=== PATIENT | male | born 1950 | race Hispanic/Latino ===

== ENCOUNTER 2018-01-18 17:44 | Emergency (ER) | payer MEDICARE, BC ==
[2018-01-18 17:54] VITALS: TEMP 98.1
[2018-01-18] MEDS ORDERED: Piperacill/Tazo 4.5gm in Dex 4.5 GM/100 ML BAG IVPB STA (19:25)
[2018-01-18] MEDS ORDERED: Sodium Chloride 0.9% 1,000 ML IV STA (19:25)
--- NOTE | 2018-01-18 19:25 | C.PDOC ---
History Of Present Illness 67 year old male presents to ED for evaluation of cat bites to distal left forearm. Pt states his own cat, that is up to date with immunizations, bit him in the left forearm yesterday. Notes he developed pain, swelling and redness to that region today. He reports washing the area with peroxide yesterday. Otherwise, denies fever, chills, or any other associated symptoms at this time. Time Seen by Provider: 01/18/18 17:55 Chief Complaint (Nursing): Bite History Per: Patient History/Exam Limitations: no limitations Past Medical History Reviewed: Historical Data, Nursing Documentation, Vital Signs Vital Signs: Last Vital Signs Temp 98.1 F 01/18/18 17:50 Pulse 96 H 01/18/18 17:50 Resp 18 01/18/18 17:50 BP Pulse Ox 95 01/18/18 19:33 - Medical History PMH: Depression, HTN, Hypercholesterolemia Surgical History: Tonsillectomy Family History: States: Unknown Family Hx - Social History Hx Alcohol Use: No Hx Substance Use: No - Immunization History Hx Tetanus Toxoid Vaccination: No Hx Influenza Vaccination: Yes Hx Pneumococcal Vaccination: Yes Review Of Systems Except As Marked, All Systems Reviewed And Found Negative. Cardiovascular: Negative for: Chest Pain Respiratory: Negative for: Shortness of Breath Skin: Positive for: Other (cat bite to left forearm) Physical Exam - Physical Exam Additional Physical Exam Comments: Constitutional: No acute distress. Head: Normocephalic. Atraumatic. Eyes: PERRL. ENT: Moist mucous membranes. Neck: Supple. Musculoskeletal: Swelling to left forearm. FROM of left hand digits and wrist. Skin: 2 teeth bite [place] to left forearm with surrounding erythema and diffuse edema. One area of streaking erythema noted. Neurologic: Alert, no focal deficit. ED Course And Treatment - Laboratory Results Result Diagrams: 01/18/18 19:41 01/18/18 19:41 O2 Sat by Pulse Oximetry: 95 Against Medical Advice - AMA Patient Left Against Medical Advice: The patient declines admission to the hospital and wishes to leave the Emergency Department. This action is against my medical advice. This decision was made with informed refusal. The patient was told that admission to the hospital is necessary. Explanation of the reasons why were discussed. The risks of leaving were explained to the patient and include, but are not limited to, worsening of known or currently unknown conditions, permanent disability and from undiagnosed or untreated conditions. The patient has the capacity to make this informed decision and understands my explanation of the current medical problem and risks of leaving. The patient voluntarily accepts these risks and signed an AMA form documenting our conversation. The patient was given the opportunity to ask questions and reconsider. The patient was encouraged to return to the Emergency Department at any time for further care. Medical Decision Making Medical Decision Making: Plan: * CMP * CBC * Blood culture * Zosyn I advised the patient be admitted for IV antibiotics but he refused. 1 dose antibiotics administered here, oral antibiotics prescribed, informed can return at any time. Disposition - Disposition Disposition: AGAINST MEDICAL ADVICE Disposition Time: 20:58 Condition: GUARDED Prescriptions: Amoxicillin/Clavulanate [Augmentin 875 MG-125 MG] 1 tab PO BID #20 tab Ibuprofen [Motrin] 600 mg PO Q6 #25 tab Instructions: Animal Bites (DC) Forms: [facility] [facility] (Sami) - Clinical Impression Clinical Impression: Cat bite, Cellulitis - Scribe Statement The provider has reviewed the documentation as recorded by the Isai De Leon All medical record entries made by the Isai were at my direction and personally dictated by me. I have reviewed the chart and agree that the record accurately reflects my personal performance of the history, physical exam, medical decision making, and the department course for this patient. I have also personally directed, reviewed, and agree with the discharge instructions and disposition.
[2018-01-18 19:44] LABS: BASO # 0.2 K/uL (0.0-0.2); BASO % 1.4 % (0.0-2.0); EOS % 0.3 % (0.0-4.0); HEMOGLOBIN 15.5 g/dL (12.0-18.0); LYMPH # 1.9 K/uL (1.0-4.3); LYMPH % 12.1 % (20.0-40.0); MEAN CELL VOLUME 88.7 fL (80.0-94.0); MEAN CORPUSCULAR HEMOGLOBIN 30.8 pg (27.0-31.0); MEAN CORPUSCULAR HGB CONC 34.7 g/dL (33.0-37.0); MEAN PLATELET VOLUME 8.6 fL (7.2-11.7); MONO # 1.2 K/uL (0.0-0.8); MONO % 7.4 % (0.0-10.0); NEUT # 12.7 K/uL (1.8-7.0); NEUT % 78.8 % (50.0-75.0); NRBC % 0.1 % (0.0-2.0); RBC 5.03 Mil/uL (4.40-5.90); RED CELL DISTRIBUTION WIDTH 13.9 % (11.5-14.5); WHITE BLOOD COUNT 16.1 K/uL (4.8-10.8)
[2018-01-18 19:57] LABS: CALCIUM 9.6 mg/dl (8.6-10.4); GFR AFRICAN-AMERICAN > 60; GFR NON-AFRICAN AMERICAN > 60
[2018-01-18 20:02] LABS: ALB/GLOB RATIO 1.3 (1.0-2.1); ALT/SGPT 28 U/L (21-72); AST/SGOT 64 U/L (17-59); BLOOD UREA NITROGEN 10 mg/dL (9-20)
[2018-01-18] MEDS ORDERED: Morphine 4 MG/ML VIAL ONE (20:24)
[2018-01-18 21:11] VITALS: BP 130/80; PULSE 80; RESP 14; O2SAT 98
== END 2018-01-18 21:10 | disposition left against medical advice (07) ==
LOC: C.ER 17:44
DX: S51.852A Open bite of left forearm, initial encounter (principal); L03.114 Cellulitis of left upper limb; W55.01XA Bitten by cat, initial encounter; Y92.9 Unspecified place or not applicable
CPT/HCPCS: 80053; 85025; 87040; 96374; 99284; J2270; J7030